=== PATIENT | male | born 1935 | race Caucasian/White ===

== ENCOUNTER 2016-11-07 00:21 | Observation (INO) | payer OTHER, BC ==
[~2016-11-07] VITALS: Ht 167.6 cm; Wt 75.0 kg
[~2016-11-07 00:21] MED LIST: ASPIR 8181 M1 PO; Aspirin E.C. PO; BENICAR40 MG PO; CRESTOR40 MG PO; DONEPEZIL HCL10 MG PO; Ecotrin PO; FLAXSEED340 GM PO; LEVITRA10 MG PO; LISINOPRIL40 MG PO; LO-DOSE ASPIRIN81 M1 PO; LOSARTAN POTASS50 MG PO; METRONIDAZOLE500 MG PO; NAMENDA XR7 MG PO; NAMENDA10 MG PO; NITROSTAT0.4 MG SL; PRILOSEC20 MG PO; VIAGRA100 MG PO; VITAMIN B-122500 MCG SL; VITAMIN D400 UNI1 PO; Vitamin D PO; Zestril,Prinivil PO
[2016-11-07 00:44] LABS: MCH 30.7 PG (29.0-34.0); MCHC 32.2 G/DL (30.0-36.0); MCV 95.6 FL (86-99); MEAN PLAT.VOLUME 9.8 uM^3 (9.0-12.4); PLATELET COUNT 161 K/uL (156-360); RBC DIS.WIDTH-CV 13.4 % (11.8-14.6); RBC DIS.WIDTH-SD 47.5 % (39-53); RED BLOOD COUNT 3.87 M/uL (4.00-5.50); WHITE BLOOD COUNT 6.1 K/uL (4.1-10.2)
[2016-11-07 00:54] LABS: CHLORIDE 109 mEq/L (99-109)
[2016-11-07 00:55] LABS: POTASSIUM 4.1 mEq/L (3.7-5.4); SODIUM 142 mEq/L (136-147)
[2016-11-07 00:56] LABS: GLUCOSE 126 mg/dL (70-99)
[2016-11-07 00:58] LABS: ANION GAP 6 MEQ/L (2-14)
[2016-11-07 01:00] LABS: GFR ESTIMATE (CALCULATED) > 59 mL/min/
[2016-11-07 01:01] LABS: UREA NITROGEN (BUN) 20 mg/dL (9-23)
[2016-11-07 01:07] LABS: TROP-I INTERPRETATION NEGATIVE; TROPONIN-I < 0.01 ng/mL (0.0-0.30)
[2016-11-07 07:57] LABS: TROP-I INTERPRETATION NEGATIVE; TROPONIN-I < 0.01 ng/mL (0.0-0.30)
[2016-11-07] MEDS ORDERED: OMEPRAZOLE40 M1 PO (09:08)
[2016-11-07] MEDS ORDERED: DONEPEZIL HCL10 MG PO (09:37)
[2016-11-07 13:06] LABS: TROP-I INTERPRETATION NEGATIVE; TROPONIN-I 0.03 ng/mL (0.0-0.30)
[2016-11-07 13:39] VITALS: BP 156/88
[2016-11-07 17:00] VITALS: BP 161/87
== END 2016-11-07 19:32 | disposition home or self-care (01) ==
LOC: EME 00:21 → EDOF 03:41 → 5WEST 13:17
PROVIDERS: Physician Assistant Medical
DX: R07.89 Other chest pain (principal); I45.10 Unspecified right bundle-branch block; R51 Headache; I25.10 Atherosclerotic heart disease of native coronary artery without angina pectoris; I10 Essential (primary) hypertension; E78.5 Hyperlipidemia, unspecified; Z95.1 Presence of aortocoronary bypass graft; Z95.3 Presence of xenogenic heart valve; Z87.891 Personal history of nicotine dependence; Z85.51 Personal history of malignant neoplasm of bladder; Z95.0 Presence of cardiac pacemaker
CPT/HCPCS: 71020; 80048; 83880; 84484; 85027; 93005; 99281; 99285; G0378; J1644; J1885

== ENCOUNTER 2018-03-09 14:25 | Emergency (ER) | payer OTHER, BC ==
[~2018-03-09] VITALS: Ht 172.7 cm; Wt 79.4 kg
[~2018-03-09 14:25] MED LIST changes: +OMEPRAZOLE40 M1 PO
[2018-03-09 15:11] LABS: HEMATOCRIT 40.7 % (38.0-50.0); HEMOGLOBIN 13.8 G/DL (12.5-16.6); MCH 31.8 PG (29.0-34.0); MCHC 33.9 G/DL (30.0-36.0); MCV 93.8 FL (86-99); PLATELET COUNT 178 K/uL (156-360); RBC DIS.WIDTH-CV 12.8 % (11.8-14.6); RBC DIS.WIDTH-SD 44.3 % (39-53); RED BLOOD COUNT 4.34 M/uL (4.00-5.50); WHITE BLOOD COUNT 5.7 K/uL (4.1-10.2)
[2018-03-09 15:30] LABS: CHLORIDE 106 mEq/L (99-109); POTASSIUM 4.6 mEq/L (3.7-5.4); SODIUM 143 mEq/L (136-147)
[2018-03-09 15:31] LABS: GLUCOSE 97 mg/dL (70-99)
[2018-03-09 15:32] LABS: TROP-I INTERPRETATION NEGATIVE; TROPONIN-I < 0.01 ng/mL (0.0-0.30)
[2018-03-09 15:35] LABS: CREATININE 1.1 mg/dL (0.6-1.3); GFR ESTIMATE (CALCULATED) > 59 mL/min/ (58.99-99999)
[2018-03-09 15:36] LABS: UREA NITROGEN (BUN) 20 mg/dL (9-23)
[2018-03-09 16:21] LABS: SALICYLATE < 5.0 MG/DL (15-30)
[2018-03-09 18:29] LABS: TROP-I INTERPRETATION NEGATIVE; TROPONIN-I < 0.01 ng/mL (0.0-0.30)
[2018-03-09 18:56] VITALS: BP 142/79
== END 2018-03-09 18:56 | disposition home or self-care (01) ==
LOC: EME 14:25
PROVIDERS: Emergency Medicine
DX: R07.89 Other chest pain (principal); I10 Essential (primary) hypertension; I25.10 Atherosclerotic heart disease of native coronary artery without angina pectoris; E78.5 Hyperlipidemia, unspecified; G43.909 Migraine, unspecified, not intractable, without status migrainosus; I25.2 Old myocardial infarction; Z79.82 Long term (current) use of aspirin; Z87.891 Personal history of nicotine dependence; Z95.1 Presence of aortocoronary bypass graft; Z95.2 Presence of prosthetic heart valve; Z95.0 Presence of cardiac pacemaker; Z85.51 Personal history of malignant neoplasm of bladder; Z90.49 Acquired absence of other specified parts of digestive tract; Z91.030 Bee allergy status
CPT/HCPCS: 71046; 80048; 84484; 85027; 93005; 99281; 99284; G0480